=== PATIENT | male | born 1955 | race Caucasian/White ===

== ENCOUNTER 2018-02-02 09:28 | Emergency (ER) | payer OTHER ==
[~2018-02-02] VITALS: Ht 182.9 cm; Wt 88.6 kg
[2018-02-02] MEDS ORDERED: ATORVASTATIN CA20 MG PO (10:07)
[2018-02-02] MEDS ORDERED: CARVEDILOL3.125 MG PO (10:07)
[2018-02-02] MEDS ORDERED: DESYREL50 MG PO (10:07)
[2018-02-02] MEDS ORDERED: PROVENTIL HFA IN (10:08)
[2018-02-02] MEDS ORDERED: COMBIVENT RESPIMAT IN (10:08)
[2018-02-02] MEDS ORDERED: PANTOPRAZOLE SO40 MG PO (10:08)
[2018-02-02] MEDS ORDERED: DILANTIN100 MG PO ×2 (10:09)
[2018-02-02] MEDS ORDERED: HYDROCO/APAP1 TA9 PO (11:16)
[2018-02-02] MEDS ORDERED: NARCAN4 MG/0.1 M (11:16)
[2018-02-02] MEDS ORDERED: MOTRIN400 MG PO (11:16)
[2018-02-02 11:20] VITALS: BP 142/75
== END 2018-02-02 11:20 | disposition home or self-care (01) ==
LOC: ED 09:28
DX: S22.31XA Fracture of one rib, right side, initial encounter for closed fracture (principal); S70.01XA Contusion of right hip, initial encounter; J44.9 Chronic obstructive pulmonary disease, unspecified; F17.210 Nicotine dependence, cigarettes, uncomplicated; W01.198A Fall on same level from slipping, tripping and stumbling with subsequent striking against other object, initial encounter; Y92.007 Garden or yard of unspecified non-institutional (private) residence as the place of occurrence of the external cause; Z95.0 Presence of cardiac pacemaker